=== PATIENT | female | born 1985 | race Caucasian/White ===

== ENCOUNTER 2020-05-20 09:43 | Observation (INO) | payer MEDICAID ==
--- NOTE | 2020-05-20 09:59 | ER Document Report ---
ED Medical Screen (RME) - General Chief Complaint: Low Back Pain Stated Complaint: LOW BACK PAIN Time Seen by Provider: 05/20/20 09:52 TRAVEL OUTSIDE OF THE [place] IN LAST 30 DAYS: No - HPI Notes: 05/20/20 10:01 34-year-old female presents to ED for evaluation of lower pelvic pain radiating into her back. Patient notes that she had 1 day of vaginal bleeding. She states that she has not had a in 14 years. She reports the pelvic pain radiates into her back. Notes it is worse on the left than on the right. She states that in the past she has had intermittent pain into the lower extremities however that does not appear to be causing her discomfort currently. She states that this is atypical for her menstrual cycles. She is not on any control medications. She denies any trauma or injury. 05/20/20 10:14 - Related Data Allergies/Adverse Reactions: No Known Allergies Allergy (Verified 06/21/14 19:27) Past Medical History Past Surgical History: Reports: Hx Cholecystectomy. Denies: Hx Pacemaker - Immunizations Hx Diphtheria, Pertussis, Tetanus Vaccination: No - last tetanus date unknown. Physical Exam - Vital signs Vitals: Temp Pulse Resp BP Pulse Ox 98.4 F 110 H 18 151/79 H 97 05/20/20 09:48 05/20/20 09:48 05/20/20 09:48 05/20/20 09:48 05/20/20 09:48 General: No acute distress. Alert and oriented x3. Sitting comfortably in a stretcher. Skin: Intact without any jaundice, pallor, or erythema. Warm and dry. Heart: Regular rate and rhythm. S1,S2. No murmurs, rubs, or gallops. Lungs: Clear to ausculation bilaterally. No wheezes, rhonchi, rales. Equal chest expansion. No retractions. Abdomen: Soft, bilateral pelvic tenderness, nondistended. Positive bowel sounds in all 4 quadrants. No hepatosplenomegaly. No masses. No CVA tenderness bilaterally. Neuro: GCS 15. Moving all extremities without discomfort. Back: No midline spinal tenderness. Psych: Mood and affect appropriate. Course - Vital Signs Vital signs: Temp Pulse Resp BP Pulse Ox 98.4 F 110 H 18 151/79 H 97 05/20/20 09:48 05/20/20 09:48 05/20/20 09:48 05/20/20 09:48 05/20/20 09:48
[2020-05-20] MEDS ORDERED: MORPHINE SULFATE 10 MG/ML INJ IV ONE (10:15)
--- NOTE | 2020-05-20 10:25 | ER Document Report ---
ED General Pain - General Chief Complaint: Low Back Pain Stated Complaint: LOW BACK PAIN Time Seen by Provider: 05/20/20 09:52 Notes: HPI: 34-year-old female that presents today with what she states is from 5 days some predominantly left and midline "pain" to her lower back. She denies any trauma or acute incident. No weakness or numbness of the legs. No fevers or incontinence. No dysuria or diarrhea. Patient does state it is exacerbated when she moves or twists her back. Patient denies any abdominal pain to me. She states she did have the start of what would be her menstrual period the onset of the symptoms 5 days ago. However she states the bleeding was very transient. She did not take a test. ROS: See HPI All other review of systems reviewed and otherwise negative Reviewed vital signs and nursing note as charted by RN. PHYSICAL EXAM: CONSTITUTIONAL: Alert and oriented and responds appropriately to questions. Well-appearing; well-nourished HEAD: Normocephalic; atraumatic EYES: Sclera is not pale CARD: Regular rate and rhythm; no murmurs; symmetric distal pulses RESP: Normal chest excursion without splinting or tachypnea; breath sounds clear and equal bilaterally ABD/GI: Normal bowel sounds; non-distended; soft, no focal tenderness to deep palpation of all 4 quadrants of the abdomen BACK: The back appears normal and is non-tender to palpation along the midline spine with no obvious swelling, erythema, step-offs, or induration. Patient has some left lower quadrant paraspinal muscular tenderness with no swelling erythema EXT: Normal ROM in all joints; non-tender to palpation; no edema SKIN: No acute lesions noted NEURO: CN 2-12 intact; 5/5 bilateral upper and lower extremity strength with sensation intact to light touch PSYCH: The patient's mood and manner are appropriate. Grooming and personal hygiene are appropriate. TRAVEL OUTSIDE OF THE [place] IN LAST 30 DAYS: No - Related Data Allergies/Adverse Reactions: No Known Allergies Allergy (Verified 06/21/14 19:27) Past Medical History - Social History Smoking Status: Unknown if Ever Smoked Family History: None, Reviewed & Not Pertinent Past Surgical History: Reports: Hx Cholecystectomy. Denies: Hx Pacemaker - Immunizations Hx Diphtheria, Pertussis, Tetanus Vaccination: No - last tetanus date unknown. Physical Exam - Vital signs Vitals: Temp Pulse Resp BP Pulse Ox 98.4 F 110 H 18 151/79 H 97 05/20/20 09:48 05/20/20 09:48 05/20/20 09:48 05/20/20 09:48 05/20/20 09:48 Course - Re-evaluation Re-evalutation: Given the above history and physical examination, I do believe this is most likely a lumbar back strain. Labs and imaging were ordered in triage. I do have a very low pretest probability for acute appendicitis or ovarian pathology at this time. 05/20/20 10:24 Labs as recorded. The blood hemolyzed and returned now with a urine positive hCG. I have added on a quantitative hCG. Patient has absolutely no tenderness whatsoever on her abdomen or back unless she moves. Is only to the left back when she moves. Patient has no abdominal tenderness at this time. 05/20/20 15:06 Quantitative hCG is recorded. I have called and spoken directly to the RADIO PRESENTER who will be down to see the patient. Patient is pain-free when lying still. I believe that the patient most likely has an ectopic and will need observation/admission. - Vital Signs Vital signs: Temp Pulse Resp BP Pulse Ox 98.4 F 110 H 18 151/79 H 97 05/20/20 09:48 05/20/20 09:48 05/20/20 09:48 05/20/20 09:48 05/20/20 09:48 - Laboratory Results Result Diagrams: 05/20/20 10:55 05/20/20 12:36 Laboratory Results Interpreted: 05/20/20 05/20/20 05/20/20 10:55 12:36 12:36 RDW 14.3 H BUN 6 L Serum HCG, Qual POSITIVE H Beta HCG, Quant 05/20/20 12:36 RDW BUN Serum HCG, Qual Beta HCG, Quant 9668.20 H Critical Laboratory Results Reviewed: No Critical Results - Radiology Results Critical Radiology Results Reviewed: No Critical Results Discharge - Discharge Clinical Impression: Pelvic pain, Elevated serum hCG Condition: Fair Disposition: ADMITTED INPATIENT Admitting Provider: [facility] Unit Admitted: Medical Floor
[2020-05-20 10:44] LABS: APPEARANCE,URINE CLEAR; BILIRUBIN,URINE NEGATIVE (NEGATIVE); COLOR,URINE STRAW; GLUCOSE, URINE NEGATIVE (NEGATIVE); KETONES,URINE NEGATIVE (NEGATIVE); LEUKOCYTE ESTERASE,URINE NEGATIVE (NEGATIVE); NITRITE,URINE NEGATIVE (NEGATIVE); PROTEIN,URINE NEGATIVE (NEGATIVE); URINE SPECIFIC GRAVITY 1.003; UROBILINOGEN,URINE NEGATIVE mg/dL (<2.0)
[2020-05-20 11:21] LABS: ABSOLUTE BASOPHILS # (AUTO) 0.1 10^3/uL (0.0-0.2); ABSOLUTE EOSINOPHILS # (AUTO) 0.1 10^3/uL (0.0-0.6); ABSOLUTE LYMPHOCYTES (AUTO) 1.7 10^3/uL (0.5-4.7); ABSOLUTE MONOCYTES (AUTO) 0.6 10^3/uL (0.1-1.4); BASOPHILS % (AUTO) 0.8 % (0-2); EOSINOPHILS % (AUTO) 1.5 % (0-6); HEMATOCRIT 36.4 % (36.0-47.0); HEMOGLOBIN 12.1 g/dL (12.0-15.5); LYMPHOCYTES % (AUTO) 26.4 % (13-45); MEAN CORPUSCULAR HEMOGLOBIN 28.9 pg (27.0-33.4); MEAN CORPUSCULAR HGB CONC 33.3 g/dL (32.0-36.0); MEAN CORPUSCULAR VOLUME 87 fl (80-97); MONOCYTES % (AUTO) 9.3 % (3-13); PLATELET COUNT 365 10^3/uL (150-450); RED CELL DISTRIBUTION WIDTH 14.3 % (11.5-14.0); TOTAL CELLS COUNTED % (AUTO) 100 %; WHITE BLOOD COUNT 6.4 10^3/uL (4.0-10.5)
--- NOTE | 2020-05-20 12:18 | RADIOLOGY REPORT (SQ) ---
EXAM DESCRIPTION: U/S NON OB PEL TV W/DOPPLER IMAGES COMPLETED DATE/TIME: 05/20/2020 12:01 pm REASON FOR STUDY: bilateral pelvic pain COMPARISON: None. TECHNIQUE: Dynamic and static grayscale images acquired of the pelvis via transvaginal approach and recorded on PACS. Additional selected color Doppler and spectral images recorded. LIMITATIONS: None. FINDINGS: UTERUS: The uterus measures 10.1 x 6.2 x 5.7 cm. The echotexture of the myometrium is sabas ogeneous. There is no myometrial mass. ENDOMETRIAL STRIPE: The endometrium measures 17 mm in thickness. CERVIX: The cervix measures 2.4 cm in length. RIGHT OVARY AND DOPPLER: The right ovary measures 4.4 x 3.8 x 3.2 cm and on Doppler there is intact a rterial inflow and venous outflow within the ovarian stroma. There is a cyst in the right ovary that measures 3.2 x 2.7 x 2.4 cm. LEFT OVARY AND DOPPLER: Unable to visualize the left ovary. There is no adnexal mass. FREE FLUID: Trace amount of free fluid in the cul de sac. OTHER: No other findings. IMPRESSION: 1. Normal myometrial thickness. 2. 3.2 x 2.7 x 2.4 cm cyst in the right ovary. There is no evidence of ovarian torsion on Doppler. 3. Nonvisualization of the left ovary. There is no adnexal mass. TECHNICAL DOCUMENTATION: JOB ID: [id number] [employer]- All Rights Reserved Reading location - IP/workstation name: [email or web address]
[2020-05-20 13:13] LABS: ALBUMIN 3.7 g/dL (3.5-5.0); ALKALINE PHOSPHATASE 46 U/L (38-126); ANION GAP 8 (5-19); ASPARTATE AMINO TRANSFERASE 26 U/L (14-36); BILIRUBIN,DIRECT 0.1 mg/dL (0.0-0.4); BILIRUBIN,TOTAL 0.5 mg/dL (0.2-1.3); BLOOD UREA NITROGEN 6 mg/dL (7-20); CALCIUM 9.5 mg/dL (8.4-10.2); CARBON DIOXIDE 23 mmol/L (22-30); CHLORIDE 107 mmol/L (98-107); GLUCOSE 96 mg/dL (75-110); POTASSIUM 4.4 mmol/L (3.6-5.0); TOTAL PROTEIN 6.6 g/dL (6.3-8.2)
[2020-05-20] MEDS ORDERED: SUCCINYLCHOLINE CHLORIDE INJ 200 MG/10 ML VIAL ONE (15:08)
[2020-05-20] MEDS ORDERED: ROCURONIUM BROMIDE INJ 50 MG/5 ML VIAL IV ONE (15:08)
[2020-05-20] MEDS ORDERED: MIDAZOLAM 2 MG/2 ML INJ ONE (20:31)
[2020-05-20] MEDS ORDERED: DEXAMETHASONE SOD PHOSPHATE INJ 4 MG/1 ML VIAL ONE (20:31)
[2020-05-20] MEDS ORDERED: ONDANSETRON HCL INJ/PF 4 MG/2 ML SDV ONE (20:31)
[2020-05-20] MEDS ORDERED: PROPOFOL INJ 200 MG/20 ML VIAL IV ONE (20:31)
[2020-05-20] MEDS ORDERED: FENTANYL CITRATE INJ/PF 100 MCG/2 ML AMPUL ONE (20:31)
[2020-05-20] MEDS ORDERED: MORPHINE SULFATE 10 MG/ML INJ IV PRN ×2 (20:59→22:12)
[2020-05-20] MEDS ORDERED: ONDANSETRON HCL INJ/PF 4 MG/2 ML SDV IV PRN (20:59)
[2020-05-20] MEDS ORDERED: FENTANYL CITRATE INJ/PF 100 MCG/2 ML AMPUL IV PRN ×3 (20:59)
[2020-05-20] MEDS ORDERED: DIPHENHYDRAMINE HCL 50 MG/ML VIAL IV PRN (20:59)
[2020-05-20] MEDS ORDERED: PROMETHAZINE HCL INJ 25 MG/1 ML VIAL IV PRN (20:59)
[2020-05-20] MEDS ORDERED: MEPERIDINE HCL/PF INJ 25 MG/1 ML DISP.SYRIN IV PRN (20:59)
[2020-05-20] MEDS ORDERED: OXYCODONE-ACETAMINOPHEN 5-325 MG TABLET PO PRN ×4 (20:59→22:02)
[2020-05-20] MEDS ORDERED: MORPHINE SULFATE 10 MG/ML INJ ONE (21:57)
--- NOTE | 2020-05-20 22:00 | Operative Report ---
Operative Report DATE OF SURGERY: 05/20/20 PREOPERATIVE DIAGNOSIS: Ectopic . Abdominal pain POSTOPERATIVE DIAGNOSIS: Same as above with addition of adhesions left fallopian tube and omentum/anterior abdominal wall OPERATION: Diagnostic laparoscopy with right salpingectomy and removal of ectopic tissue. Aspiration of right ovarian cyst. Lysis of adhesions between left fallopian tube and anterior abdominal wall and omentum SURGEON: OMAYRA BERNABE ANESTHESIA: GA TISSUE REMOVED OR ALTERED: RIght fallopian tube and ectopic tissue COMPLICATIONS: none ESTIMATED BLOOD LOSS: 10 ml INTRAOPERATIVE FINDINGS: Normal appearing uterus, left ovary and fallopian tube. The left fallopain tube did have adhesions between it and the anteroir abdominal wall and omentum. The right fallopian tube was swollen approximately 1.5 cm from the uterus with what appeared to be the ectopic . Right ovary with 3 cm cyst containing clear straw color cystic fluid. PROCEDURE: IV fluids: per anesthesia record Urinary output: 100 cc urine emptied from the bladder at the beginning of the procedure Findings: Normal-appearing uterus, left fallopian tube with adhesions as above and left ovary appeared normal. Right ovary had a 3 cm simple appearing cyst and right fallopian tube was swollen with what appeared to be an ectopic as above. Liver seen and appears normal Position: To recovery room in stable condition Description of procedure: The patient was taken to the operating room and general anesthesia was administered and found to be adequate. She was then placed on the OR table in the dorsal lithotomy position. The Patient was prepped and draped in usual sterile fashion. Timeout was taken. A sponge stick was placed in the vagina for use as a uterine manipulator during the procedure. At this time attention was turned of the patient's abdomen and sterile gloves were donned a 1 cm infra umbilical incision was made horizontally and carried down to the level of the rectus fascia. The rectus fascia was then grasped with 2 Eunice clamps elevated and incised with Valente scissors. A digital sweep was done noting entry into the peritoneum. The fascia was tagged bilaterally with 0-vicryl suture. A #10 Hernandez trocar was positioned and CO2 gas was used to insufflate the abdomen to a quantity sufficient for the laparoscopy. The laparoscope was inserted and a survey was done of the abdomen pictures were obtained. Findings noted as above. 2 additional 5 mm ports were placed one in the right and one in the left lower quadrant under direct visualization. Using a grasper and a blunt probe the pelvic organs were evaluated. Pictures were taken. The right fallopian tube was then grasped near the fimbriated end and using the LigaSure the mesosalpinx was taken down in a segmental fashion to the other side of the swollen tube containing products of conception. The tube was then crossclamped coagulated and transected near the uterus. Good hemostasis was noted. The right fallopian tube with ectopic tissue was removed through the midline port and will be sent to the lab labeled right fallopian tube with products of conception. The right ovary was elevated and a 3 cm simple appearing cyst was noted. The fluid within the cyst could be seen and looks serous, straw color. Using a needle the cyst was aspirated and clear straw- colored fluid was obtained. The LigaSure was then used to remove a portion of the cystic wall and obtain hemostasis. Good hemostasis was noted. Pictures were obtained. At this point the procedure was terminated. All instrument removed from the patient's abdomen and CO2 gas was allowed to escape. The infraumbilical port was removed. The fascia was closed with 0 Vicryl suture. The skin was closed with 3-0 Monocryl in a series of interrupted stitiches. The skin incision was then clean dried and Dermabond was applied over the skin incision. All instrument sponge and needle counts were correct x3 for the procedure the patient tolerated the procedure well. She will proceed to recovery room in stable condition
[2020-05-20] MEDS ORDERED: KETOROLAC TROMETHAMINE INJ/PF 30 MG/1 ML SDV IV PRN (22:02)
[2020-05-20] MEDS ORDERED: RINGERS SOLUTION,LACTATED 1,000 ML IV PRN (22:02)
[2020-05-20] MEDS ORDERED: IBUPROFEN 800 MG TABLET PO ONE (23:45)
[2020-05-20] MEDS: IBUPROFEN 800 MG TABLET PO SCH (23:49)
[2020-05-21 05:41] LABS: ABSOLUTE LYMPHOCYTES (AUTO) 0.7 10^3/uL (0.5-4.7); ABSOLUTE MONOCYTES (AUTO) 0.2 10^3/uL (0.1-1.4); ABSOLUTE NEUT (AUTO) 6.3 10^3/uL (1.7-8.2); BASOPHILS % (AUTO) 0.1 % (0-2); HEMATOCRIT 34.1 % (36.0-47.0); HEMOGLOBIN 11.4 g/dL (12.0-15.5); LYMPHOCYTES % (AUTO) 9.3 % (13-45); MEAN CORPUSCULAR HEMOGLOBIN 29.1 pg (27.0-33.4); MEAN CORPUSCULAR HGB CONC 33.5 g/dL (32.0-36.0); MEAN CORPUSCULAR VOLUME 87 fl (80-97); MONOCYTES % (AUTO) 3.4 % (3-13); PLATELET COUNT 319 10^3/uL (150-450); RED BLOOD COUNT 3.93 10^6/uL (3.72-5.28); RED CELL DISTRIBUTION WIDTH 14.2 % (11.5-14.0); SEGMENTED NEUTROPHILS % (AUTO) 87.2 % (42-78); TOTAL CELLS COUNTED % (AUTO) 100 %; WHITE BLOOD COUNT 7.2 10^3/uL (4.0-10.5)
[2020-05-21] MEDS: IBUPROFEN 800 MG TABLET PO SCH (06:33)
--- NOTE | 2020-05-21 06:56 | PDOC DISCHARGE SUMMARY ---
Impression - Admit/DC Date/PCP Admission Date/Primary Care Provider: 05/20/20 15:29 Discharge Date: 05/21/20 - Discharge Diagnosis (1) Ectopic Is this a current diagnosis for this admission?: Yes - Additional Information Resuscitation Status: Full Code Discharge Diet: As Tolerated Discharge Activity: Activity As Tolerated, No Lifting Over 10 Pounds, Pelvic Rest, Walk Frequently Referrals: OMAYRA BERNABE MD [ACTIVE PROVISIONAL STAFF] - Prescriptions: Ibuprofen [Motrin 800 mg Tablet] 800 mg PO Q8 10 Days #30 tablet Oxycodone HCl/Acetaminophen [Percocet 5-325 mg Tablet] 1 tab PO Q4HP PRN 5 Days #20 tablet PRN Reason: Home Medications: Ibuprofen [Motrin 800 mg Tablet] 800 mg PO Q8 10 Days #30 tablet 05/21/20 Oxycodone HCl/Acetaminophen [Percocet 5-325 mg Tablet] 1 tab PO Q4HP PRN 5 Days #20 tablet 05/21/20 Additional Information: S/p Dx Laparoscopy with removal of ectopic tissue and lysis of extension adhesions left adnexal History of Present Illiness History of Present Illness: OTF FUNK is a 34 year old female at approx 5.4 wks EGA by LMP that presents today with what she states is from 5 days some predominantly left and midline "pain" to her lower back. She denies any trauma or acute incident. No fevers or or chills. No bowel or bladder complaints. Patient does state it is exacerbated when she moves or twists her back. She states she did have the start of what would be her menstrual period the onset of the symptoms 5 days ago. However bleeding was transient and stopped that same day. Last period prior to that was 04/11/20. She is not on BC. Has two children and youngest is 14 yo. She states she was told when her GB was removed that there was scarring of her fallopian tubes which appeared clubbed and because of this she was told she would not be able to get Denies hx of pelvic infection No bleeding or abnormal vaginal discharge today Physical Exam - Physical Exam Vital Signs: Temp Pulse Resp BP Pulse Ox 98.4 F 100 16 108/58 L 98 05/21/20 03:17 05/21/20 03:17 05/21/20 03:17 05/21/20 03:17 05/21/20 03:17 Intake & Output 05/19/20 05/20/20 05/21/20 06:59 06:59 06:59 Intake Total 1200 Output Total 25 Balance 1175 Weight 83.9 kg Results Laboratory Results: WBC 7.2 10^3/uL (4.0-10.5) 05/21/20 05:24 RBC 3.93 10^6/uL (3.72-5.28) 05/21/20 05:24 Hgb 11.4 g/dL (12.0-15.5) L 05/21/20 05:24 Hct 34.1 % (36.0-47.0) L 05/21/20 05:24 MCV 87 fl (80-97) 05/21/20 05:24 MCH 29.1 pg (27.0-33.4) 05/21/20 05:24 MCHC 33.5 g/dL (32.0-36.0) 05/21/20 05:24 RDW 14.2 % (11.5-14.0) H 05/21/20 05:24 Plt Count 319 10^3/uL (150-450) 05/21/20 05:24 Lymph % (Auto) 9.3 % (13-45) L 05/21/20 05:24 [place] % (Auto) 3.4 % (3-13) 05/21/20 05:24 Eos % (Auto) 0.0 % (0-6) 05/21/20 05:24 Baso % (Auto) 0.1 % (0-2) 05/21/20 05:24 Absolute Neuts (auto) 6.3 10^3/uL (1.7-8.2) 05/21/20 05:24 Absolute Lymphs (auto) 0.7 10^3/uL (0.5-4.7) 05/21/20 05:24 Absolute Monos (auto) 0.2 10^3/uL (0.1-1.4) 05/21/20 05:24 Absolute Eos (auto) 0.0 10^3/uL (0.0-0.6) 05/21/20 05:24 Absolute Basos (auto) 0.0 10^3/uL (0.0-0.2) 05/21/20 05:24 Seg Neutrophils % 87.2 % (42-78) H 05/21/20 05:24 Sodium 138.0 mmol/L (137-145) 05/20/20 12:36 Potassium 4.4 mmol/L (3.6-5.0) 05/20/20 12:36 Chloride 107 mmol/L (98-107) 05/20/20 12:36 Carbon Dioxide 23 mmol/L (22-30) 05/20/20 12:36 Anion Gap 8 (5-19) 05/20/20 12:36 BUN 6 mg/dL (7-20) L 05/20/20 12:36 Creatinine 0.58 mg/dL (0.52-1.25) 05/20/20 12:36 Est GFR ( Amer) > 60 (>60) 05/20/20 12:36 Est GFR (Non-Af Amer) Cancelled 05/20/20 10:55 Est GFR (MDRD) Non-Af > 60 (>60) 05/20/20 12:36 Glucose 96 mg/dL (75-110) 05/20/20 12:36 Calcium 9.5 mg/dL (8.4-10.2) 05/20/20 12:36 Total Bilirubin 0.5 mg/dL (0.2-1.3) 05/20/20 12:36 Direct Bilirubin 0.1 mg/dL (0.0-0.4) 05/20/20 12:36 Neonat Total Bilirubin Not Reportable 05/20/20 12:36 Neonat Direct Bilirubin Not Reportable 05/20/20 12:36 Neonat Indirect Bili Not Reportable 05/20/20 12:36 AST 26 U/L (14-36) 05/20/20 12:36 ALT 12 U/L (<35) 05/20/20 12:36 Alkaline Phosphatase 46 U/L (38-126) 05/20/20 12:36 Total Protein 6.6 g/dL (6.3-8.2) 05/20/20 12:36 Albumin 3.7 g/dL (3.5-5.0) 05/20/20 12:36 EGFR Cancelled 05/20/20 10:55 Serum HCG, Qual POSITIVE (NEGATIVE) H 12/16/20 12:36 Beta HCG, Quant 9668.20 mIU/mL (0.0-6.15) H 05/20/20 12:36 Total Beta HCG POSITIVE (NEGATIVE) 05/20/20 12:36 Urine Color STRAW 05/20/20 10:30 Urine Appearance CLEAR 05/20/20 10:30 Urine pH 6.0 (5.0-9.0) 05/20/20 10:30 Ur Specific Baxter 1.003 05/20/20 10:30 Urine Protein NEGATIVE mg/dL (NEGATIVE) 05/20/20 10:30 Urine Glucose (UA) NEGATIVE mg/dL (NEGATIVE) 05/20/20 10:30 Urine Ketones NEGATIVE mg/dL (NEGATIVE) 05/20/20 10:30 Urine Blood NEGATIVE (NEGATIVE) 05/20/20 10:30 Urine Nitrite NEGATIVE (NEGATIVE) 05/20/20 10:30 Urine Bilirubin NEGATIVE (NEGATIVE) 05/20/20 10:30 Urine Urobilinogen NEGATIVE mg/dL (<2.0) 05/20/20 10:30 Ur Leukocyte Esterase NEGATIVE (NEGATIVE) 05/20/20 10:30 Urine WBC (Auto) 0 /HPF 05/20/20 10:30 Urine RBC (Auto) 1 /HPF 05/20/20 10:30 Urine Bacteria (Auto) TRACE /HPF 05/20/20 10:30 Squamous Epi Cells Auto 3 /HPF 05/20/20 10:30 Urine Ascorbic Acid NEGATIVE (NEGATIVE) 05/20/20 10:30 Influenza A (RT-PCR) NEGATIVE (NEGATIVE) 05/20/20 16:30 Influenza B (RT-PCR) NEGATIVE (NEGATIVE) 05/20/20 16:30 RSV (RT-PCR) NEGATIVE (NEGATIVE) 05/20/20 16:30 SARS-CoV-2 Rap RNA(RT-PCR) NEGATIVE (NEGATIVE) 05/20/20 16:30 Blood Type A POSITIVE 05/20/20 12:36 Antibody Screen NEGATIVE 05/20/20 12:36 Impressions: Transvaginal US 05/20/20 09:58 IMPRESSION: 1. Normal myometrial thickness. 2. 3.2 x 2.7 x 2.4 cm cyst in the right ovary. There is no evidence of ovarian torsion on Doppler. 3. Nonvisualization of the left ovary. There is no adnexal mass. Stroke Is this a Stroke Patient?: No Acute Heart Failure Is this a Heart Failure Patient?: No
[2020-05-21] MEDS ORDERED: INFLUENZA QUAD (6MOS+) 2020-21 VAC 0.5 ML SYR IM ONE (08:00)
[2020-05-21 08:01] VITALS: BP 108/51
--- NOTE | 2020-05-25 08:03 | PDOC H&P ---
History of Present Illness Admission Date/PCP: 05/20/20 15:29 Patient complains of: abdominal /back pain History of Present Illness: OTF FUNK is a 34 year old female at approx 5.4 wks EGA by LMP that presents today with what she states is from 5 days some predominantly left and midline "pain" to her lower back. She denies any trauma or acute incident. No fevers or or chills. No bowel or bladder complaints. Patient does state it is exacerbated when she moves or twists her back. She states she did have the start of what would be her menstrual period the onset of the symptoms 5 days ago. However bleeding was transient and stopped that same day. Last period prior to that was 04/11/20. She is not on BC. Has two children and youngest is 14 yo. She states she was told when her GB was removed that there was scarring of her fallopian tubes which appeared clubbed and because of this she was told she would not be able to get Denies hx of pelvic infection No bleeding or abnormal vaginal discharge today Past Medical History LMP: Apr Past Surgical History Past Surgical History: Reports: Cholecystectomy Denies: Pacemaker Social History Smoking Status: Unknown if Ever Smoked Electronic Cigarette use?: Yes Family History Family History: None, Reviewed & Not Pertinent Parental Family History Reviewed: Yes Children Family History Reviewed: Yes Sibling(s) Family History Reviewed.: Yes Medication/Allergy Home Medications: Ibuprofen [Motrin 800 mg Tablet] 800 mg PO Q8 10 Days #30 tablet 05/21/20 Oxycodone HCl/Acetaminophen [Percocet 5-325 mg Tablet] 1 tab PO Q4HP PRN 5 Days #20 tablet 05/21/20 Allergies/Adverse Reactions: No Known Allergies Allergy (Verified 06/21/14 19:27) Review of Systems Constitutional: ABSENT: chills, fever(s), headache(s), weight gain, weight loss Cardiovascular: ABSENT: chest pain, dyspnea on exertion, edema, orthropnea, palpitations Respiratory: ABSENT: cough, hemoptysis Gastrointestinal: PRESENT: abdominal pain - very mild on deep palpation. ABSENT: constipation, diarrhea, hematemesis, hematochezia, nausea, vomiting Musculoskeletal: ABSENT: joint swelling Integumentary: ABSENT: rash, wounds Neurological: ABSENT: abnormal gait, abnormal speech, confusion, dizziness, focal weakness, syncope Psychiatric: ABSENT: anxiety, depression, homidical ideation, suicidal ideation Hematologic/Lymphatic: ABSENT: easy bleeding, easy bruising Physical Exam - Physical Exam Vital Signs: Temp Pulse Resp BP Pulse Ox 98.4 F 110 H 18 151/79 H 97 05/20/20 09:48 05/20/20 09:48 05/20/20 09:48 05/20/20 09:48 05/20/20 09:48 Intake & Output 05/19/20 05/20/20 05/21/20 06:59 06:59 06:59 Weight 84.7 kg General appearance: PRESENT: no acute distress, cooperative, well-developed, well-nourished Respiratory exam: PRESENT: clear to auscultation ro Cardiovascular exam: PRESENT: RRR, +S1, +S2 GI/Abdominal exam: PRESENT: normal bowel sounds, soft, tenderness - very mild on palpation in suprapubic area Extremities exam: PRESENT: full ROM. ABSENT: calf tenderness, clubbing, pedal edema Neurological exam: PRESENT: alert, awake, oriented to person, oriented to place, oriented to time, oriented to situation, CN II-XII grossly intact. ABSENT: motor sensory deficit Psychiatric exam: PRESENT: appropriate affect, normal mood. ABSENT: homicidal ideation, suicidal ideation Skin exam: PRESENT: dry, intact, warm. ABSENT: cyanosis, rash Result Laboratory Results: 05/20/20 10:55 05/20/20 12:36 05/20/20 05/20/20 05/20/20 10:30 10:55 10:55 WBC 6.4 RBC 4.20 Hgb 12.1 Hct 36.4 MCV 87 MCH 28.9 MCHC 33.3 RDW 14.3 H Plt Count 365 Seg Neutrophils % 62.0 Sodium Potassium Chloride Carbon Dioxide Anion Gap BUN Creatinine Est GFR ( Amer) Est GFR (Non-Af Amer) Glucose Calcium Total Bilirubin AST Alkaline Phosphatase Total Protein Albumin Serum HCG, Qual Urine Color STRAW Urine Appearance CLEAR Urine pH 6.0 Ur Specific [place] 1.003 Urine Protein NEGATIVE Urine Glucose (UA) NEGATIVE Urine Ketones NEGATIVE Urine Blood NEGATIVE Urine Nitrite NEGATIVE Ur Leukocyte Esterase NEGATIVE Urine WBC (Auto) 0 Urine RBC (Auto) 1 Blood Type Cancelled Antibody Screen Cancelled 05/20/20 05/20/20 05/20/20 10:55 10:55 12:36 WBC RBC Hgb Hct MCV MCH MCHC RDW Plt Count Seg Neutrophils % Sodium Cancelled Potassium Cancelled Chloride Cancelled Carbon Dioxide Cancelled Anion Gap Cancelled BUN Cancelled Creatinine Cancelled Est GFR ( Amer) Cancelled Est GFR (Non-Af Amer) Cancelled Glucose Cancelled Calcium Cancelled Total Bilirubin Cancelled AST Cancelled Alkaline Phosphatase Cancelled Total Protein Cancelled Albumin Cancelled Serum HCG, Qual Cancelled Urine Color Urine Appearance Urine pH Ur Specific [place] Urine Protein Urine Glucose (UA) Urine Ketones Urine Blood Urine Nitrite Ur Leukocyte Esterase Urine WBC (Auto) Urine RBC (Auto) Blood Type A POSITIVE Antibody Screen NEGATIVE 05/20/20 05/20/20 12:36 12:36 WBC RBC Hgb Hct MCV MCH MCHC RDW Plt Count Seg Neutrophils % Sodium 138.0 Potassium 4.4 Chloride 107 Carbon Dioxide 23 Anion Gap 8 BUN 6 L Creatinine 0.58 Est GFR ( Amer) > 60 Est GFR (Non-Af Amer) Glucose 96 Calcium 9.5 Total Bilirubin 0.5 AST 26 Alkaline Phosphatase 46 Total Protein 6.6 Albumin 3.7 Serum HCG, Qual POSITIVE H Urine Color Urine Appearance Urine pH Ur Specific [place] Urine Protein Urine Glucose (UA) Urine Ketones Urine Blood Urine Nitrite Ur Leukocyte Esterase Urine WBC (Auto) Urine RBC (Auto) Blood Type Antibody Screen Impressions: Transvaginal US 05/20/20 09:58 IMPRESSION: 1. Normal myometrial thickness. 2. 3.2 x 2.7 x 2.4 cm cyst in the right ovary. There is no evidence of ovarian torsion on Doppler. 3. Nonvisualization of the left ovary. There is no adnexal mass. Assessment & Plan - Diagnosis (1) Ectopic Qualifiers: Location of ectopic : unspecified location Intrauterine status: without intrauterine Qualified Code(s): O00.90 - Unspecified ectopic without intrauterine Is this a current diagnosis for this admission?: Yes - Time Critical Time spent with patient: 15-24 minutes Anticipated Discharge Disposition: Home, Self Care Anticipated Discharge Timeframe: within 24 hours - Plan Summary Plan Summary: 34 yo at approx 5.4 wks EGA ectopic -VSS presently -Abdomem soft on exam, mild tenderness to deep palpation in suprapubic region -Quant HCG is 9,668 today and no IUP seen on US. Right ovary has cyst measuring 3.2x 2.7 x 2.4 cm , left ovary not seen. No adnexal mass and trace fluid seen in adnexa. No discrete Ectopic seen. Discussed with patient with Quant HCG of 9,600 we should be able to see and IUP or gestational sac. Discussed with patient ectopic is non-viable and if ruptures is a life-threatening situation. Discussed options which are limited because medical therapy with methotrexate is not likely to work with high HCG level greater than 5,000. She is in favor or surgery to see if ectopic present and remove if seen. WIll set up diagnostic laparoscopy with removal of ectopic tissue, possible oophorectomy, possible salpingectomy or other indicated procedure. Discussed that if cannot find ectopic, will only take pictures .
== END 2020-05-21 09:32 | disposition home or self-care (01) ==
LOC: ER 09:43 → INTOOBSV 15:29 → EH 15:29 → 2N 22:27
PROVIDERS: ADMIT Obstetrics & Gynecology; ATTEND Obstetrics & Gynecology
DX: O00.111 Right tubal pregnancy with intrauterine pregnancy (principal); M54.5 Low back pain; Z3A.01 Less than 8 weeks gestation of pregnancy; O99.331 Smoking (tobacco) complicating pregnancy, first trimester; F17.290 Nicotine dependence, other tobacco product, uncomplicated; Z79.899 Other long term (current) drug therapy
CPT/HCPCS: 99285; 96374; 86900; 86901; 36415 ×2; 86850; 84702; 84703; 85025 ×2; 0241U ×4; 80053; 81001; 88305 ×2; 76830; 93976; 90686; 99140; 00840; 59151; 58660; 49322; G0378 ×2; G0008; J2250; J3490 ×2; J1100; J3010; J2270; J0330; J2405; J7120; J2704; C9803; 840; 90471